=== PATIENT | male | born 1960 | race Caucasian/White ===

== ENCOUNTER 2019-11-10 15:16 | Emergency (ER) | payer BC ==
[2019-11-10] MEDS ORDERED: fentaNYL 100 MCG/2 ML SDV IVPUSH ONE (16:08)
[2019-11-10] MEDS ORDERED: Propofol 200 MG/20 ML SDV IVPUSH ONE (16:08)
[2019-11-10] MEDS ORDERED: Sodium Chloride 0.9% 1,000 ML IV SCH (16:15)
--- NOTE | 2019-11-10 16:39 | CRLCR ---
HISTORY: Deformity after injury COMPARISON: None available. FINDINGS: The left foot is examined with AP, lateral, and oblique views. There is Lisfranc fracture-dislocation of all of the TMT joints with displacement of the forefoot in the lateral and dorsal direction by approximately 1 centimeter. There appears to be an avulsion fracture of the medial aspect of the base of the 2nd metatarsal with the minor fracture fragment located adjacent to the medial cuboid. There is no sign of any additional fracture or dislocation elsewhere in the foot. The soft tissues are normal in appearance without sign of radio-opaque foreign body. No degenerative changes are seen. IMPRESSION: Lisfranc fracture of the 1st through 5th TMT ease with approximately 1 centimeter lateral and dorsal displacement of the metatarsals. Acute, prominently displaced avulsion fracture of the medial aspect of the base of the 2nd metatarsal. Dictated by Aki Menchaca MD @ Nov 10 2019 4:34PM Signed by Dr. Aki Menchaca @ Nov 10 2019 4:38PM
--- NOTE | 2019-11-10 17:29 | EDM.PDOC ---
ED HPI GENERAL MEDICAL PROBLEM - General Chief Complaint: Lower Extremity Injury/Pain Stated Complaint: HURT FOOT Time Seen by Provider: 11/10/19 15:45 Source of Information: Reports: Patient History Limitations: Reports: No Limitations - History of Present Illness INITIAL COMMENTS - FREE TEXT/NARRATIVE: 59-year-old male with a left foot injury. 1 hour ago he was stepping over the hitch of a car when he tripped and jammed his left foot into the ground sustaining an injury. It is very painful, deformed, he cannot bear weight. No other injury. Onset: Sudden Duration: Hour(s): (1 hour ago) Location: Reports: Lower Extremity, Left Quality: Reports: Sharp, Stabbing Severity: Moderate Worsens with: Reports: Movement Associated Symptoms: Reports: No Other Symptoms Left Foot Pain Score (Numeric/FACES): 8 - Related Data Allergies Allergy/AdvReac Type Severity Reaction Status Date / Time No Known Allergies Allergy Verified 11/10/19 15:55 Home Meds: Home Meds . [Unable to Verify Home Med List] 11/10/19 [History] Past Medical History HEENT History: Reports: None Cardiovascular History: Reports: High Cholesterol, Hypertension Respiratory History: Reports: None Gastrointestinal History: Reports: None Genitourinary History: Reports: None Musculoskeletal History: Reports: Fracture Neurological History: Reports: None Psychiatric History: Reports: None Endocrine/Metabolic History: Reports: None Hematologic History: Reports: None Immunologic History: Reports: None Oncologic (Cancer) History: Reports: None Dermatologic History: Reports: None - Past Surgical History HEENT Surgical History: Reports: None Cardiovascular Surgical History: Reports: None GI Surgical History: Reports: None Male Surgical History: Reports: None Neurological Surgical History: Reports: None Musculoskeletal Surgical History: Reports: None Social & Family History - Tobacco Use Smoking Status *Q: Never Smoker - Caffeine Use Caffeine Use: Reports: Coffee - Recreational Drug Use Recreational Drug Use: No Review of Systems - Review of Systems Review Of Systems: See Below Constitutional: Denies: Fever Respiratory: Reports: No Symptoms Cardiovascular: Reports: No Symptoms Skin: Reports: Bruising (Slight bruising is forming over the top of the left foot) Neurological: Denies: Paresthesia (He can feel his toes) ED EXAM, GENERAL - Physical Exam Exam: See Below Exam Limited By: No Limitations General Appearance: Alert, Mild Distress Eye Exam: Bilateral Eye: Normal Inspection Head: Atraumatic Neck: Supple, Non-Tender Respiratory/Chest: Lungs Clear Cardiovascular: Regular Rate, Rhythm Extremities: Other (Left foot has a midfoot deformity, extreme tenderness with palpation. Ankle is nontender) Neurological: Alert, Oriented Psychiatric: Normal Affect, Normal Mood Skin Exam: Warm, Dry Course - Vital Signs Last Recorded V/S: Last Vital Signs Temp 97.5 F 11/10/19 15:52 Pulse 79 11/10/19 17:10 Resp 19 11/10/19 16:41 BP 144/83 H 11/10/19 17:10 Pulse Ox 100 11/10/19 16:41 - Orders/Labs/Meds Meds: Medications Discontinued Medications Generic Name Dose Route Start Last Admin Trade Name Shubham PRN Reason Stop Dose Admin Fentanyl 50 mcg 11/10/19 16:08 11/10/19 17:05 Sublimaze IVPUSH 11/10/19 16:09 50 mcg ONETIME ONE Administration Sodium Chloride 1,000 mls @ 1,000 mls/hr 11/10/19 16:15 11/10/19 17:04 Normal Saline IV 1,000 mls/hr ASDIRECTED JOSÉ MIGUEL Administration Propofol 200 mg 11/10/19 16:08 11/10/19 17:06 Diprivan 20 Ml IVPUSH 11/10/19 16:09 200 mg ONETIME ONE Administration - Re-Assessments/Exams Free Text/Narrative Re-Assessment/Exam: 11/10/19 17:26 An x-ray shows complete dislocation of the metatarsal tarsal joints with no obvious fracture. Patient has not eaten in 4 hours, so was prepared for an attempted reduction of the dislocation with propofol sedation. After consent and discussing risks and benefits, using 180 mg of propofol after 50 mcg of fentanyl, reduction was attempted. Unfortunately was unsuccessful. Consultation with Dr. Garcia, podiatry in [place], resulted in transfer of the patient for surgical treatment of the dislocation. Departure - Departure Time of Disposition: 17:52 Disposition: DC/Tfer to [place] [id number] Clinical Impression: Closed traumatic dislocation of metatarsal joint - Discharge Information Referrals: PCP,None [Primary Care Provider] - Forms: ED Department Discharge Care Plan Goals: Patient is to be transferred to [place] for podiatry consultation for further evaluation and surgical treatment of a metatarsal dislocation of his left foot. Sepsis Event Note (ED) - Evaluation Sepsis Screening Result: No Definite Risk
== END 2019-11-10 17:52 | disposition other institution (70) ==
LOC: JP.ED 15:16
DX: S93.325A Dislocation of tarsometatarsal joint of left foot, initial encounter (principal); I10 Essential (primary) hypertension; W23.0XXA Caught, crushed, jammed, or pinched between moving objects, initial encounter
CPT/HCPCS: 73630; 96374; 96375; 99284; J2704; J3010; J7030